=== PATIENT | female | born 1980 | race Caucasian/White ===

== ENCOUNTER 2019-09-18 21:32 | Emergency (ER) | payer SELFPAY ==
[~2019-09-18] VITALS: Ht 154.9 cm; Wt 75.0 kg
[~2019-09-18 21:32] MED LIST: DOCU-138 PO; FERR325C PO; IBUP-779 PO; PREN1TAB49 PO
[2019-09-18 21:53] VITALS: BP 129/61
== END 2019-09-18 22:56 | disposition home or self-care (01) ==
LOC: ER 21:32
DX: H66.90 Otitis media, unspecified, unspecified ear (principal); Z90.49 Acquired absence of other specified parts of digestive tract
CPT/HCPCS: 99283